=== PATIENT | male | born 1945 | race African-American/Black ===

== ENCOUNTER 2016-09-08 11:12 | Inpatient (IN) ==
[2016-09-08] MEDS ORDERED: SODIUM CHLORIDE 0.9% 1,000 ML IV STA (11:46)
[2016-09-08 11:54] LABS: Basophils % 0.3 % (0.0-0.8); Eosinophils % 0.3 % (0.00-10.9); Hematocrit 29.9 VOL% (42.0-52.0); Hemoglobin 9.8 GM/DL (14.0-18.0); Immature Granulocytes % 0.3 %; Immature Granulocytes Absolute 0.02 #; Lymphocytes # 2.2 10*3/uL (1.4-4.0); Lymphocytes % 32.8 % (21.2-54.2); Mean Corpuscular HGB Conc 32.8 GM/DL (32-36); Mean Corpuscular Hemoglobin 28 PG (27-34); Mean Platelet Volume 12.1 FL (9.6-12.0); Monocytes # 0.3 10*3/uL (0.11-0.8); Monocytes % 4.8 % (1.7-12.7); Neutrophils # 4.1 10*3/uL (1.4-7.4); Neutrophils % 61.5 % (38.7-73.9); Platelet Count 142 T/CUMM (130-400); Red Blood Count 3.56 MC/CUMM (3.8-5.5); White Blood Count 6.6 T/CUMM (4-12)
[2016-09-08 12:03] LABS: INR 1.1; PT Patient Result 11.8 SECS
--- NOTE | 2016-09-08 12:11 | XRay Report ---
XR chest 1V portable Indication: Shortness of breath Comparison: Chest x-ray 11/10/2014 Technique: Portable AP chest was performed. Findings: The heart size appears within normal limits. Pulmonary vasculature demonstrates no specific abnormality. Hilar structures demonstrate fairly symmetric appearance. The lungs appear clear. Bones and soft tissues demonstrate no evidence of acute pathology. Impression: 1. No evidence of acute pathology. 09/08/2016 12:08 PM PROCEDURE INTERPRETED AT [facility] DEPARTMENT OF RADIOLOGY Final Report Signed by: Dr. Louis Santiago
[2016-09-08 12:35] LABS: Alanine Aminotransferase 15 U/L (16-61); Albumin 3.4 G/DL (3.4-5.0); Alkaline Phosphatase 64 U/L (45-117); Aspartate Amino Transferase 12 U/L (0-37); Bilirubin,Total < 0.39 MG/DL (0.2-1.0); Blood Urea Nitrogen 21 MG/DL (7-18); Calcium 8.9 MG/DL (8.5-10.1); Glucose 110 MG/DL (74-106); Magnesium 1.9 MG/DL (1.8-2.4); Osmolality,Calculated 293.6 MOS/KG (273-304); Sodium 146 MMOL/L (136-145); Total Protein 6.2 G/DL (6.4-8.3)
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
[2016-09-08] MEDS ORDERED: ACETAMINOPHEN 325 MG TABLET PO PRN (14:12)
[2016-09-08] MEDS ORDERED: ONDANSETRON 4 MG/2 ML VIAL IV PRN (14:12)
[2016-09-08] MEDS ORDERED: DOCUSATE SODIUM 100 MG CAPSULE PO PRN (14:12)
[2016-09-08] MEDS ORDERED: NICOTINE 21 MG/24 HR PATCH TRANSDERM PRN (14:12)
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
[2016-09-08] MEDS: SODIUM CHLORIDE 0.9% 1,000 ML IV SCH (15:08)
[2016-09-08 15:10] LABS: Apearance,Urine CLEAR (Clear); Bilirubin,Urine Negative (Negative); Blood, Urine Negative (Negative); Glucose,Urine (UA) Negative (Negative); Ketones,Urine Negative (Negative); Mucus,Urine Occasional /LPF (Occasional); Nitrite,Urine Negative (Negative); Protein,Urine Negative; RBC,Urine 1 /HPF (0-4); Squamous Epithelial Cell,Urine Occasional /HPF (0-10); Urine Color Yellow (Yellow); Urine Specific Gravity 1.013 (1.001-1.035); Urine Urobilinogen < 2.0 EU/DL (0.2-1.0); WBC,Urine 3 /HPF (0-6)
[2016-09-08 15:15] LABS: Hematocrit 26.4 VOL% (42.0-52.0); Hemoglobin 8.6 GM/DL (14.0-18.0)
[2016-09-08] MEDS ORDERED: BISACODYL 5 MG TABLET PO ONE (19:30)
[2016-09-08] MEDS ORDERED: POLYETHYLENE GLYCOL POWDER 255 GM BOTTLE PO ONE (19:30)
[2016-09-08] MEDS: PANTOPRAZOLE 40 MG VIAL IV SCH (20:42)
[2016-09-08 23:02] LABS: Hematocrit 25.5 VOL% (42.0-52.0); Hemoglobin 8.3 GM/DL (14.0-18.0)
[2016-09-09] MEDS: SODIUM CHLORIDE 0.9% 1,000 ML IV SCH ×2 (03:18→20:29)
[2016-09-09 05:21] LABS: Basophils % 0.3 % (0.0-0.8); Eosinophils # 0.1 10*3/uL (0.0-0.87); Eosinophils % 1.2 % (0.00-10.9); Hematocrit 24.4 VOL% (42.0-52.0); Hemoglobin 7.8 GM/DL (14.0-18.0); Immature Granulocytes % 0.3 %; Immature Granulocytes Absolute 0.02 #; Lymphocytes # 2.3 10*3/uL (1.4-4.0); Lymphocytes % 38.4 % (21.2-54.2); Mean Corpuscular Hemoglobin 27 PG (27-34); Mean Corpuscular Volume 84.7 FL (87-102); Mean Platelet Volume 12.3 FL (9.6-12.0); Monocytes # 0.4 10*3/uL (0.11-0.8); Monocytes % 6.2 % (1.7-12.7); Neutrophils # 3.2 10*3/uL (1.4-7.4); Neutrophils % 53.6 % (38.7-73.9); Platelet Count 127 T/CUMM (130-400); Red Blood Count 2.88 MC/CUMM (3.8-5.5)
[2016-09-09] MEDS ORDERED: SODIUM CHLORIDE 0.9% 250 ML IV PRN (05:25)
[2016-09-09 05:29] LABS: INR 1.2; PT Patient Result 12.5 SECS
[2016-09-09 06:09] LABS: Risk Ratio 3.05; Thyroid Stimulating Hormone 3.93 uIU/ml (0.358-3.74); VLDL CHOLESTEROL 15.4 MG/DL
--- NOTE | 2016-09-09 06:30 | EKG Report ---
Stationary ECG Study [facility] ER Test Date: 09/08/2016 11:24:21 AM Pat Name: PAGE LOWE Department: Room: 529 Gender: M Gas Inspector: Suzie Oneill : 1945 Requested by: Tim Conway Order Number: [id number] Reading MD: IOANA ROSALSE Intervals [place] Rate: 69 P: 76 RI: 149 QRS: 71 QRSD: 83 T: 64 QT: 397 QTc: 417 Interpretive Statements SINUS RHYTHM WITH OCCASIONAL VENTRICULAR PREMATURE COMPLEXES Electronically Signed On 09-09-16 08:55:21 CDT by IOANA ROSALES [email or web address]
--- NOTE | 2016-09-09 07:00 | Physician Query Form ---
CLICK EDIT DOCUMENT TO SELECT QUERY ANSWER --> OK --> SIGN Veronica Santiago RN, CCDS Certified Clinical Manager Environmental Health And Safety W) [phone] (f) [phone] [email or web address] PROVIDERS: Make your selection(s) from the choices in EACH section by typing an "x" and enter comments in the comment section. Please use your independent medical judgment in providing your response. This request does not imply that any particular answer is desired or expected. CLINICAL INDICATORS: (Providers should not edit this section) The medical record indicates that the patient was admitted with GI bleeding, HH has dropped to 7.8/24.4 from 9.8/29.9. Based on the above, could you clarify which of the following conditions you are evaluating, treating, and/or monitoring? ( x) Blood loss anemia ( x) acute ( ) chronic ( ) acute on chronic ( ) Acute blood loss anemia on baseline chronic anemia ( ) Acute blood loss anemia as a complication of a procedure ( ) Iron deficiency anemia not associated with blood loss ( ) Dilutional anemia due to IV fluids ( ) Anemia due to chemotherapy ( ) Anemia due to neoplastic disease ( ) Anemia due to chronic kidney disease ( ) Pernicious anemia ( ) Aplastic anemia ( ) Hemolytic anemia ( ) immune ( ) non-immune - please specify cause: ( ) Anemia due to other condition, please specify: ( ) Clinically unable to determine COMMENTS: PLEASE ALSO DOCUMENT RESPONSE IN PROGRESS NOTES AND/OR DISCHARGE SUMMARY Use of terms such as suspected, likely, or probable (associated with a specific diagnosis that is being evaluated, monitored, or treated as if it exists) are acceptable and can be restated in the discharge summary if not ruled out. MTDD
--- NOTE | 2016-09-09 07:25 | EKG Report ---
Stationary ECG Study [facility] Test Date: 09/09/2016 7:24:28 AM Pat Name: PAGE LOWE Department: Room: 529 Gender: M Inspector General: CAITLIN : 1945 Requested by: Doug Wilkins Order Number: [id number] Reading MD: IOANA ROSALES Intervals [place] Rate: 44 P: 66 NV: 194 QRS: 73 QRSD: 76 T: 65 QT: 439 QTc: 388 Interpretive Statements SINUS BRADYCARDIA Electronically Signed On 09-09-16 09:11:29 CDT by IOANA ROSALES [email or web address]
[2016-09-09] MEDS: SOLIFENACIN 5 MG TABLET PO SCH (08:59)
[2016-09-09] MEDS: PANTOPRAZOLE 40 MG VIAL IV SCH ×2 (08:59→21:23)
[2016-09-09] MEDS ORDERED: LIDOCAINE 1% 5 ML VIAL ONE (10:45)
[2016-09-09] MEDS ORDERED: PROPOFOL 200 MG/20 ML VIAL IV ONE (10:45)
[2016-09-09] MEDS ORDERED: ePHEDrine 50 MG/ML AMP ONE (10:50)
[2016-09-09] MEDS ORDERED: EPINEPHrine 1 MG/ML VIAL ONE (10:50)
--- NOTE | 2016-09-09 11:03 | History and Physical Update ---
History and Physical Update - Physical Exam Mental Status: alert and oriented Heart: regular rate and rhythm Lung: clear to auscultation Abdomen: within normal limits Vitals: within normal limits
--- NOTE | 2016-09-09 11:06 | Operative Note ---
Date of procedure: 09/09/16 Pre-op diagnosis: Acute lower GI bleed Procedure: Colonoscopy with polypectomy 71-year-old gentleman admitted with acute lower GI bleed now for colonoscopy to further evaluate. Informed consent was obtained the patient He was sedated with MAC anesthesia per anesthesia protocol. Patient placed left lateral decubitus position digital exam was normal no rectal masses or prostatic nodularity felt. The Olympus flexible video colonoscope was inserted and canal advanced under direct vision level cecum identify obvious ago valve appendiceal orifice. Withdrawal time 8 minutes Prep fair Cecum-normal identify obvious ago valve appendiceal orifice Terminal ileum-normal no bloodstained mucosa Ascending colon-diffuse diverticulosis no active bleeding Transverse colon-diverticulosis no active bleeding Descending colon 6 mm polyp hot biopsy fulgurated. Diverticulosis no active bleeding Sigmoid colon-diverticulosis no active bleeding Rectum-4 mm polyp hot biopsy fulgurated otherwise normal to direct retroflexed views. The procedure was terminated patient was discharged recovery in good condition. Postop diagnosis: 1. Colon [id number] polyp path 2. Diverticulosis-likely source of the patient's episode of acute GI bleeding. Transfuse as required to continue to monitor for signs symptoms of active bleeding. If recurrent active bleeding develops consider GI bleeding scan with CT to attempt to localize for possible arteriography. 3. If hematocrit remains stable for 36 hours patient be discharged home. I will be out until Monday call coverage if needed. Anesthesia: MAC Surgeon / Physician: Hang Portillo Estimated blood loss: none Specimens: other (Colon polyp) Condition: stable Disposition: post procedure unit Results - Labs CBC & BMP: 09/09/16 04:31 09/08/16 11:47 Discharge Plan - Discharge Medications No Action Valsartan [Diovan] 320 mg PO QAM hydrALAZINE TAB [Apresoline Tab] 25 mg PO QAM amLODIPine [Norvasc] 10 mg PO QAM Solifenacin [Vesicare] 5 mg PO QAM - Follow Up or Referral - Forms/Instructions
--- NOTE | 2016-09-09 11:47 | Anesthesia Post-Op ---
Anesthesia Post OP - Post Ansesthetic Evaluation Patient seen in post op: Yes Resp: within normal limits CV: within normal limits Mental: within normal limits Temp: within normal limits [id number]: within normal limits Nausea and Vomiting: within normal limits Pain: within normal limits
[2016-09-09 14:36] LABS: Hematocrit 27.6 VOL% (42.0-52.0); Hemoglobin 8.8 GM/DL (14.0-18.0)
--- NOTE | 2016-09-09 16:53 | Hospitalist Progress Note ---
Assessment and Plan (1) Anemia Status: Chronic Assessment and plan: CBC in a.m. Current Visit: Yes (2) HTN (hypertension) Status: Chronic Current Visit: No Qualifiers: Hypertension type: essential hypertension Qualified Code(s): I10 - Essential (primary) hypertension (3) Colon polyps Status: Acute Current Visit: No (4) Lower gastrointestinal hemorrhage Status: Acute Assessment and plan: Hemodynamically stable. No further bleeding. Status post colonoscopy. Current Visit: Yes (5) History of diverticulitis Status: Chronic Current Visit: Yes Hospitalist: Subjective Interval history: The patient is resting. He is status post colonoscopy done today. Hematocrit has been stable. Will advance diet this afternoon. Will check CBC in the morning. Exam - Constitutional Vitals: Period Temp Pulse Resp BP Sys/Cavazos Pulse Ox Last 24 Hr 97 F-98.3 F 46-84 16-21 73-109/41-76 92-100 General appearance: normal weight - Head Head exam: Present: normal inspection - Neck Neck exam: Present: normal inspection - Respiratory Respiratory exam: Present: clear to auscultation bilaterally - Cardiovascular Cardiovascular exam: Present: regular rate and rhythm - GI/Abdominal GI/Abdominal exam: Present: normal bowel sounds - Back Exam Back exam: Present: normal inspection - Neurological Exam Neurological exam: Present: alert, oriented X3, CN II-XII intact - Skin Skin exam: Present: normal color, dry Results - Labs CBC & BMP: 09/09/16 14:24 09/08/16 11:47
[2016-09-09 23:46] LABS: Hemoglobin 7.8 GM/DL (14.0-18.0)
[2016-09-10] MEDS ORDERED: SODIUM CHLORIDE 0.9% 250 ML IV PRN (01:03)
[2016-09-10] MEDS: SOLIFENACIN 5 MG TABLET PO SCH (09:42)
--- NOTE | 2016-09-10 10:14 | Hospitalist Progress Note ---
Assessment and Plan - Time spent with patient Time spent with patient: Less than 30 minutes (1) Lower gastrointestinal hemorrhage Status: Acute Assessment and plan: Patient had lower GI bleed and is status post colonoscopy with findings of diverticulosis which was suspected source of the acute GI bleeding. He was also had some colon polyps that were removed with biopsy, pathology pending. Current Visit: Yes (2) Colon polyps Status: Acute Assessment and plan: Is status post colon polypectomy and will follow-up on outpatient basis for pathology. Current Visit: No (3) Anemia Status: Acute Assessment and plan: He had anemia which was secondary to acute blood loss. We will continue to follow serial hematocrits and if remains stable will plan discharge tomorrow. Current Visit: Yes (4) HTN (hypertension) Status: Chronic Assessment and plan: Patient has chronic central hypertension and is currently hemodynamically stable. Continue his current medical regimen. Current Visit: No Qualifiers: Hypertension type: essential hypertension Qualified Code(s): I10 - Essential (primary) hypertension Hospitalist: Subjective Interval history: Chart has been reviewed and patient examined. He denies any chest pain, shortness of breath, abdominal pain, nausea, vomiting, no further recurrent bleeding. Exam - Constitutional Vitals: Period Temp Pulse Resp BP Sys/Cavazos Pulse Ox Last 24 Hr 97.2 F-98.3 F 40-84 16-21 73-132/41-81 93-100 General appearance: no acute distress - Head Head exam: Present: normocephalic, atraumatic - Eye Eye exam: Present: EOMI Pupils: Present: MICHELLE - ENT ENT exam: Present: normal exam - Neck Neck exam: Present: normal inspection - Respiratory Respiratory exam: Present: clear to auscultation bilaterally. Absent: rales, rhonchi, wheezes - Cardiovascular Cardiovascular exam: Present: regular rate and rhythm. Absent: tachycardia - GI/Abdominal GI/Abdominal exam: Present: normal bowel sounds, soft. Absent: tenderness - Extremities Exam Extremities exam: Absent: calf tenderness, edema - Back Exam Back exam: Present: normal inspection - Neurological Exam Neurological exam: Present: alert, oriented X3, CN II-XII intact. Absent: motor sensory deficit - Psychiatric Psychiatric exam: Present: normal affect, normal mood. Absent: agitated, anxious - Skin Skin exam: Present: warm, dry. Absent: erythema, rash Results - Labs CBC & BMP: 09/09/16 22:57 09/08/16 11:47 Lab Results: I have reviewed the past 24 hour labs
[2016-09-10] MEDS: PANTOPRAZOLE 40 MG VIAL IV SCH (11:13)
[2016-09-10] MEDS: SODIUM CHLORIDE 0.9% 1,000 ML IV SCH (11:35)
[2016-09-10 12:45] LABS: Basophils % 0.3 % (0.0-0.8); Eosinophils % 0.6 % (0.00-10.9); Hematocrit 33.1 VOL% (42.0-52.0); Immature Granulocytes % 0.2 %; Immature Granulocytes Absolute 0.01 #; Lymphocytes # 2.1 10*3/uL (1.4-4.0); Mean Corpuscular HGB Conc 33.2 GM/DL (32-36); Mean Corpuscular Hemoglobin 28 PG (27-34); Mean Corpuscular Volume 84.7 FL (87-102); Mean Platelet Volume 10.5 FL (9.6-12.0); Monocytes # 0.4 10*3/uL (0.11-0.8); Monocytes % 6.2 % (1.7-12.7); Neutrophils # 3.9 10*3/uL (1.4-7.4); Neutrophils % 60.7 % (38.7-73.9); Platelet Count 118 T/CUMM (130-400); Red Blood Count 3.91 MC/CUMM (3.8-5.5); Red Cell Distribution Width 16.2 % (9.3-17.3); White Blood Count 6.5 T/CUMM (4-12)
[2016-09-10 13:06] LABS: INR 1.1; PT Patient Result 12.1 SECS
[2016-09-10 13:13] LABS: Calcium 8.5 MG/DL (8.5-10.1); Osmolality,Calculated 286.7 MOS/KG (273-304); Potassium 3.9 MMOL/L (3.5-5.1)
[2016-09-10 17:49] LABS: Hematocrit 31.3 VOL% (42.0-52.0); Hemoglobin 10.3 GM/DL (14.0-18.0)
--- NOTE | 2016-09-10 20:00 | CT Report ---
CT angio abd/pel GI Bleed TECHNIQUE: Axial CT images of the Abdomen and Pelvis were obtained during the arterial phase of contrast injection. 3-D vascular MIPS reconstructions and multiplanar reformats were evaluated. Omnipaque 350, 100 cc was administered intravenously with no immediate complication. Dose reduction: This CT exam was performed using one or more of the following dose reduction techniques: Automated exposure control, automated adjustment of the mA and/or KV according to patient size, or use of iterative reconstruction technique. COMPARISON: None available CLINICAL HISTORY: GI bleed CTA FINDINGS: Descending thoracic aorta is normal caliber. Celiac and superior mesenteric arteries are widely patent with minimal atherosclerotic plaque noted. Major jejunal and mesenteric branches appear widely patent. No obvious area of focal active extravasation of contrast is evident within the central small bowel. Inferior mesenteric artery is also widely patent. The bilateral renal arteries are widely patent. 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 Dedicated assessment of the gastric artery and gastroepiploic vessels do not demonstrate evidence of active extravasation can be sagittal territories. 1.3 cm minimally enhancing nodular lesion associated with the colonic mucosa of the distal transverse colon is incidentally imaged (axial image 62), which is of uncertain significance but may represent a small polyp. Pelvic vasculature appears grossly unremarkable. 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 No suggestion of significant atherosclerotic plaque or high-grade stenosis/aneurysm. NON--CTA FINDINGS: Very minimal posterior basilar atelectatic changes are noted bilaterally. Lung bases are otherwise clear. There is no pleural or pericardial effusion. ABDOMEN: Liver/Gallbladder: No abnormal enhancing hepatic lesions. There is no biliary ductal dilatation. Gallbladder is contracted and otherwise grossly within normal limits. Spleen: No acute findings. Pancreas: No acute findings. Adrenals: Within normal limits in appearance. Kidneys: Both kidneys enhance symmetrically. There are hypodense nonenhancing lesions which are primarily cortically base associated with both kidneys measuring up to 3.2 cm on the left and 2.5 cm on the right. Bowel/mesentery: Small bowel is nondilated. There is no free fluid/air within the abdomen. There is no mesenteric adenopathy. Multiple colonic diverticula are noted. There are postsurgical changes within the sigmoid colon compatible with prior colonic resection. Mucosal thickening and multiple residual diverticular lesions are identified within the hepatic flexure and transverse colon. There is no definite CT evidence of acute diverticulitis. Retroperitoneum: No evidence of aortic aneurysm or significant retroperitoneal adenopathy. PELVIS: Bladder is nondistended. There is a small possible bladder diverticulum extending from the anterolateral left bladder. 2 additional possible small bladder diverticula are noted at the posterior lateral left bladder and lateral right bladder. Additional considerations would be pelvic lymph nodes with central hyperdensity measuring up to 2.5 cm maximum overall dimension, although this is felt to be unlikely. Prostate is top normal in size. There is no free fluid in the dependent pelvis. BONES: No acute or suspicious osseous abnormalities are identified. IMPRESSION: 1. No definite evidence of active extravasation/hemorrhage within the GI tract. 2. Multifocal clonic diverticulosis primarily at the hepatic flexure and transverse colon with suggestion of partial colon resection at the descending/sigmoid colon previously. No definite CT evidence of acute diverticulitis. Consider colonoscopy evaluation as extensive diverticular disease could be the source of this patient's intermittent bleeding. Additionally, at least one nodular lesion within the distal transverse colon may represent a polyp with some enhancement and neoplasm cannot be excluded. 3. Bilateral renal cysts. 4. Probable bladder diverticula as detailed above. 09/10/2016 7:34 PM PROCEDURE INTERPRETED AT [facility] DEPARTMENT OF RADIOLOGY Final Report Signed by: Nathan Leroy
[2016-09-11 06:12] LABS: Hematocrit 29.6 VOL% (42.0-52.0); Hemoglobin 9.5 GM/DL (14.0-18.0)
[2016-09-11] MEDS: PANTOPRAZOLE 40 MG TABLET PO SCH (08:20)
[2016-09-11] MEDS: SOLIFENACIN 5 MG TABLET PO SCH (08:20)
--- NOTE | 2016-09-11 08:59 | Hospitalist Progress Note ---
Assessment and Plan - Time spent with patient Time spent with patient: Less than 30 minutes (1) Lower gastrointestinal hemorrhage Status: Acute Assessment and plan: Patient had lower GI bleed and is status post colonoscopy with findings of diverticulosis which was suspected source of the acute GI bleeding. He was also had some colon polyps that were removed with biopsy, pathology pending. 09/11/16: Patient had recurrent lower GI bleeding last evening. CTA/CT of the abdomen and pelvis revealed no evidence of active bleeding. His H&H is remaining relatively stable and he is otherwise asymptomatic. Will await further recommendations from gastroenterology at this time. Current Visit: Yes (2) Colon polyps Status: Acute Assessment and plan: Is status post colon polypectomy and will follow-up on outpatient basis for pathology. Current Visit: No (3) Anemia Status: Acute Assessment and plan: He had anemia which was secondary to acute blood loss. We will continue to follow serial hematocrits and await further recommendations from gastroenterology. Current Visit: Yes (4) HTN (hypertension) Status: Chronic Assessment and plan: Patient has chronic central hypertension and is currently hemodynamically stable. Continue his current medical regimen. Current Visit: No Qualifiers: Hypertension type: essential hypertension Qualified Code(s): I10 - Essential (primary) hypertension Hospitalist: Subjective Interval history: Patient had large bloody bowel movement last evening followed by CT of the abdomen and pelvis with angiography which revealed no evidence of active bleeding. This morning he denies any further bleeding, abdominal pain, nausea, vomiting. He has had no chest discomfort, dizziness or shortness of breath. Exam - Constitutional Vitals: Period Temp Pulse Resp BP Sys/Cavazos Pulse Ox Last 24 Hr 97.8 F-98.7 F 40-59 16-18 103-123/57-80 99-100 General appearance: no acute distress - Head Head exam: Present: normocephalic, atraumatic - Eye Eye exam: Present: EOMI Pupils: Present: MICHELLE - ENT ENT exam: Present: normal exam - Neck Neck exam: Present: normal inspection - Respiratory Respiratory exam: Present: clear to auscultation bilaterally - Cardiovascular Cardiovascular exam: Present: regular rate and rhythm. Absent: tachycardia - GI/Abdominal GI/Abdominal exam: Present: normal bowel sounds, soft. Absent: tenderness, rebound - Extremities Exam Extremities exam: Absent: calf tenderness, edema - Neurological Exam Neurological exam: Present: alert, oriented X3, CN II-XII intact. Absent: motor sensory deficit - Psychiatric Psychiatric exam: Present: normal affect, normal mood. Absent: agitated, anxious - Skin Skin exam: Present: warm, dry. Absent: erythema Results - Labs CBC & BMP: 09/11/16 04:52 09/10/16 12:37 Lab Results: I have reviewed the past 24 hour labs - Diagnostic Findings Procedure: CT: report reviewed by me
--- NOTE | 2016-09-11 15:13 | Gastrointestinal Progress Note ---
Assessment and Plan - Time spent with patient Time spent with patient: Greater than 30 minutes (1) Hematochezia Status: Acute Current Visit: Yes (2) Abnormal findings on diagnostic imaging of abdomen Status: Acute Current Visit: Yes (3) Other specified counseling Status: Acute Current Visit: Yes Exam (Progress Note) - Constitutional Vitals: Period Temp Pulse Resp BP Sys/Cavazos Pulse Ox Last 24 Hr 97.8 F-98.7 F 30-60 16-18 103-109/57-75 99-100 Results - Labs CBC & BMP: 09/11/16 04:52 09/10/16 12:37 Note Addendum: PLEASE NOTE -- automatic citation of patient information is unavoidable in this electronic note. I have made a reasonable effort to review the information cited , but it is not a part of my evaluation, impression, or recommendation unless specifically discussed in the dictated text that follows. As well, voice recognition software was used in the creation of this clinical note. Reasonable effort was made to identify and correct gross errors. Despite proofreading, errors in manager ui may be present, including nonsense verbiage at times. If you encounter such an error, please contact me at for discussion and correction. -- Kevan Chief complaint: hematochezia Subjective: the patient is a 71-year-old male seen for follow-up of hematochezia. I was called last evening and informed that the patient had had to episodes of blood in his stool. He previously underwent colonoscopy and polypectomy with Dr. Portillo and had finding of diverticulosis of the ascending, descending, and sigmoid colon but no active bleeding. The patient had no change in his hemodynamics status but did experience a 1 g/dL dropping hemoglobin. He underwent CT angiography for localization of bleeding side and this exam was negative. He has no further bowel movements documented today and no further bleeding documented. He did not have abdominal pain during last night's event and does not now. He is tolerating oral diet. He is without other complaints at present Medications: Tylenol, Colace, [place], Nicoderm, Zofran, Protonix, vesicare Review of Symptoms: 12 point review of symptoms was negative except as noted above Physical examination: Vital Signs: Current vital signs reviewed. General Appearance: well-appearing. Not acutely ill. Head: Normocephalic. Eyes: no scleral icterus. No scleral injection. No conjunctival pallor. Oral Cavity: Odor of breath was normal. No drooling was observed. Lips showed no abnormalities. Lungs: Respiration rhythm and depth was normal. Cardiovascular: Heart rate and rhythm were normal. Abdomen: abdomen was not distended. Abdominal auscultation revealed no abnormalities. Ascites was not discovered. Abdominal palpation revealed no tenderness and no hepatosplenomegaly. Musculoskeletal System: musculoskeletal system was grossly normal. Neurological: level of consciousness was normal. Speech was normal. No coordination/cerebellum abnormalities were noted. Skin: Gen. appearance was normal. Color and pigmentation were normal. No skin lesions were appreciated. Laboratory: hemoglobin 9.5, hematocrit 29.6 Radiology: CT angiography of the abdomen and pelvis (G.I. bleeding protocol) -- no definite evidence of active extravasation or hemorrhage within the G.I. tract ; multifocal colonic diverticulosis without evidence of diverticulitis; nodular lesion of the transverse colon which may represent a polyp; bladder diverticulum Impressions: 1. Hematochezia -- the patient does not have active bleeding at present. I recommend continued monitoring with further transfusion as indicated. No urgent endoscopy as indicated at present. 2. Abnormal imaging finding in the abdomen -- the patient had a nodular lesion in the distal transverse colon lumen. This could be a missed polyp and surveillance colonoscopy in the outpatient setting would not be unreasonable. 3. Other specified counseling -- Patient seen for greater than 30 minutes. Greater than 50% of this time was spent counseling regarding differential diagnosis, likely diagnosis,, diagnostic and therapeutic options, risks, benefits, and alternatives to procedures and medications, informed consent, and plan of care generally. Patient has expressed understanding and wishes to proceed. Recommendations: -- continue crystalloid resuscitation -- continue monitoring blood counts with further transfusion as indicated -- monitoring/management of anemia both during admission and after discharge -- consider surveillance colonoscopy during convalescence -- we will continue to follow with you. Dr. Portillo will resume G.I. care for this patient tomorrow.
[2016-09-12 05:12] LABS: Hemoglobin 9.5 GM/DL (14.0-18.0)
[2016-09-12] MEDS: SOLIFENACIN 5 MG TABLET PO SCH (08:33)
[2016-09-12] MEDS: PANTOPRAZOLE 40 MG TABLET PO SCH (08:33)
--- NOTE | 2016-09-12 09:18 | Gastrointestinal Progress Note ---
<Cristy Kincaid Emily - Last Filed: 09/12/16 09:16> Assessment and Plan (1) Lower GI bleed Status: Acute Assessment and plan: 09/12-no further bleeding since Monday. CT bleeding scan negative at that time. Hemoglobin holding at 9.5. Tolerating diet at present time. Advance diet continue to monitor. Plan an addendum to followed by Dr. Portillo. 6/1-2 day history of dark red bleeding with dark clots without stool. No associated symptoms including abdominal pain, nausea or vomiting. No prior history of GI bleeding. 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 Hemoglobin 9.8 on admission. Continue to monitor serial H&H, clear liquid diet. Plan an addendum to followed by Dr. Portillo. Current Visit: Yes (2) Lower gastrointestinal hemorrhage Status: Acute Current Visit: Yes Gastroenterology - PN: Subj Interval history: CC: Rectal bleed Patient is seen awake alert sitting up in bed. States he had an uneventful weekend. States his last bloody bowel movement was on Monday however he has had no further movement since then. Hemoglobin dropped initially at that time from 10.3-9.5 however has remained stable at this time. He is tolerating clear liquid diet without difficulty. He denies abdominal pain, nausea or vomiting. Will advance his diet continue to monitor present time. CT bleeding scan negative on Monday. ROS: Denies shortness of breath or chest pain Exam (Progress Note) - Constitutional Vitals: Period Temp Pulse Resp BP Sys/Cavazos Pulse Ox Last 24 Hr 97.7 F-98.3 F 30-60 16-20 91-118/64-75 92-100 General appearance: normal weight, no acute distress - Head Head exam: Present: normal inspection, normocephalic - Eye Eye exam: Present: other (Lids and conjunctive are unremarkable). Absent: scleral icterus - ENT ENT exam: Present: normal exam - Neck Neck exam: Present: normal inspection - Respiratory Respiratory exam: Present: clear to auscultation bilaterally. Absent: rales, rhonchi, wheezes - Cardiovascular Cardiovascular exam: Present: regular rate and rhythm. Absent: systolic murmur - GI/Abdominal GI/Abdominal exam: Present: normal bowel sounds, soft. Absent: ascites, distended, mass, organomegaly, tenderness - Extremities Exam Extremities exam: Present: normal inspection, full ROM - Back Exam Back exam: Present: normal inspection - Neurological Exam Neurological exam: Present: alert, oriented X3 - Psychiatric Psychiatric exam: Present: normal affect, normal mood - Skin Skin exam: Present: normal color, warm, dry Results - Labs CBC & BMP: 09/12/16 04:15 09/10/16 12:37 Lab Results: I have reviewed the past 24 hour labs Specialty Discharge - Follow Up or Referrals Follow up with: Hang Portillo MD [Physician] - 10/13/16 3:30 pm ( ) Isaiah Alvarado MD [Physician] - 10/07/16 11:00 am (bradycardia not caused by medications ) Kamila Malone M.D. [Physician] - 09/23/16 10:30 am (hypertension ) <Hang Portillo - Last Filed: 09/12/16 13:12> Exam (Progress Note) - Constitutional Vitals: Period Temp Pulse Resp BP Sys/Cavazos Pulse Ox Last 24 Hr 97.6 F-98.3 F 40-86 16-20 91-118/58-86 92-100 Results - Labs CBC & BMP: 09/12/16 04:15 09/10/16 12:37
--- NOTE | 2016-09-12 11:49 | Discharge Summary ---
Discharge Plan - Discharge Data Disposition: Disch To Home/Self Care Condition at Discharge: Stable Discharge Diet: heart healthy Activity: resume usual activities as tolerated Hygiene: no restrictions Weight Bearing at Discharge: full weight bearing - Discharge Medications No Action Valsartan [Diovan] 320 mg PO QAM hydrALAZINE TAB [Apresoline Tab] 25 mg PO QAM amLODIPine [Norvasc] 10 mg PO QAM Solifenacin [Vesicare] 5 mg PO QAM - Follow Up or Referral - Forms/Instructions Additional Discharge Instructions: discharge home if okay with Dr. Portillo Exam - Constitutional Vitals: Period Temp Pulse Resp BP Sys/Cavazos Pulse Ox Last 24 Hr 97.6 F-98.3 F 30-86 16-20 91-118/64-86 92-100 Discharge Results Procedures and tests throughout hospitalization: Pending Orders 09/08/16 22:40 Occult Blood, Stool Stat Labs on day of discharge: Labs from last 24 hours 09/12/16 04:15 Hgb 9.5 L Hct 29.0 L DS: Provider Date of admission: 09/08/16 12:18 Primary care physician: . No PCP Attending physician on admission: Nadir Donis MD Consults: 09/08/16 14:12 Consult to Physician [CONS] Routine Comment: [facility] [place] pt Consulting Provider: Hang Portillo Person Notified: Masha Date Notified: 09/08/16 Time Notified: 14:16 Discharging clinician: Lela Salguero MD
[2016-09-12 11:52] VITALS: BP 113/66
--- NOTE | 2016-09-12 11:54 | Discharge Summary ---
Hospital Course - Hospital Course Hospital Course: Mr. Velarde is a 71-year-old black male patient with a history of smoking, hypertension, gout, colon polyps, and diverticulitis presents to the ED today with complaints of dark red bleeding from rectum that has been going on since Monday. Dr. Portillo was consulted and performed a colonoscopy on September 09, 2016. Patient had evidence of colon polyps which were removed and diverticulosis. Patient's hemoglobin on admission was 9.8 and dropped down to 7.8 on 09/09/2016. Patient received a total of 4 units packed red blood cells. He had a little bloody stool on Monday but nothing on Monday and his counts remained stable at 9.5. Dr. Portillo said he could go home today. Patient also had asymptomatic bradycardia. His heart rate during the day has dropped down to a low of 31 but averages about 42 and he received no medications. I will do a Holter monitor for 48 hours and send him to see Dr. Alvarado for further evaluation of his bradycardia. Patient's blood pressure has been stable without medications. I will hold his losartan Norvasc and hydralazine. He needs to see Dr. Malone in 3 days as his blood pressure medicines will probably need to be restarted at this point. Patient needs to measure his blood pressure 3 times a day documented. He is to call Dr. Malone immediately if his blood pressure goes over 160 systolic. - Time spent with patient Time with patient DS: Less than 30 minutes (25 min) Discharge Plan - Discharge Data Disposition: Disch To Home/Self Care Condition at Discharge: Stable Discharge Diet: heart healthy Activity: resume usual activities as tolerated Hygiene: no restrictions Weight Bearing at Discharge: full weight bearing - Discharge Medications New Pantoprazole Tab [Protonix Tab] 40 mg PO DAILY #30 tablet Continue Solifenacin [Vesicare] 5 mg PO QAM Discontinued Valsartan [Diovan] 320 mg PO QAM hydrALAZINE TAB [Apresoline Tab] 25 mg PO QAM amLODIPine [Norvasc] 10 mg PO QAM - Follow Up or Referral Follow Up: Kamila Malone M.D. [Physician] - 3 Days (hypertension ) Isaiah Alvarado MD [Physician] - 1 Week (bradycardia not caused by medications ) Hang Portillo MD [Physician] - 1 Month - Forms/Instructions Additional Discharge Instructions: holter monitor for 48 hours. Record blood pressure three times a day and restart his losartan if systolic blood pressure greater than 140 and add back his norvasc if his systolic blood pressure greater than 160. Exam - Constitutional Vitals: Period Temp Pulse Resp BP Sys/Cavazos Pulse Ox Last 24 Hr 97.6 F-98.3 F 30-86 16-20 91-118/64-86 92-100 General appearance: normal weight, no acute distress - Respiratory Respiratory exam: Present: clear to auscultation bilaterally - Cardiovascular Cardiovascular exam: Present: regular rate and rhythm. Absent: systolic murmur - GI/Abdominal GI/Abdominal exam: Present: normal bowel sounds, soft. Absent: tenderness - Extremities Exam Extremities exam: Present: normal inspection. Absent: edema - Neurological Exam Neurological exam: Present: alert, oriented X3 - Psychiatric Psychiatric exam: Present: normal affect, normal mood Discharge Results Procedures and tests throughout hospitalization: Pending Orders 09/08/16 22:40 Occult Blood, Stool Stat Labs on day of discharge: Labs from last 24 hours 09/12/16 04:15 Hgb 9.5 L Hct 29.0 L DS: Provider Date of admission: 09/08/16 12:18 Primary care physician: . No PCP Attending physician on admission: Nadir Donis MD Consults: 09/08/16 14:12 Consult to Physician [CONS] Routine Comment: [facility] [place]ing Provider: Hang Portillo Person Notified: Masha Date Notified: 09/08/16 Time Notified: 14:16 Discharging clinician: Lela Salguero MD
--- NOTE | 2016-09-12 12:24 | Pathology Report from [facility] ---
[facility] ACCESSION # : [id number] PATIENT NAME : Jr. Velarde Lovell ORDERING DR : PATRICIA PERRIN MD CLINICAL HX: Acute lower GI Bleed POST-OP DX: Polypectomy SPECIMEN INFO: Descending colon polyp and polyp rectum GROSS DESCRIPTION: Received in formalin labeled PAGE VELARDE are two chacon tissue fragments measuring 0.4 x 0.2 cm collectively submitted in one cassette. DIAGNOSIS FOR PAGE VELARDE JR.: DESCENDING COLON POLYP & POLYP RECTUM: Tubular adenoma and hyperplastic polyp. COLLECTED DATE: 09/11/2016 [facility] REPORT DATE: 09/12/2016 ELECTRONICALLY SIGNED BY: Vikash Castañeda M.D. 09/12/2016 - 10:16:38 [facility]
== END 2016-09-12 14:40 | disposition home or self-care (01) | DRG 378 ==
LOC: N.ED 11:12 → SUATTDRO 12:18 → N.EDINP 12:18 → N.5E 14:11
PROVIDERS: ADMIT Internal Medicine; ATTEND Internal Medicine